=== PATIENT | male | born 2000 | race Caucasian/White ===

== ENCOUNTER 2018-03-03 14:14 | Emergency (ER) | payer BC ==
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
[2018-03-03 15:33] VITALS: BP 130/80
== END 2018-03-03 15:33 | disposition home or self-care (01) ==
DX: S92.192A Other fracture of left talus, initial encounter for closed fracture (principal); S92.255A Nondisplaced fracture of navicular [scaphoid] of left foot, initial encounter for closed fracture; W22.8XXA Striking against or struck by other objects, initial encounter; Y92.9 Unspecified place or not applicable
CPT/HCPCS: L4386